=== PATIENT | male | born 1975 | race Caucasian/White ===

== ENCOUNTER 2023-03-03 08:46 | Emergency (ER) | payer SELFPAY ==
[2023-03-03] VITALS (13 sets, daily range): BP systolic 109–156; BP diastolic 72–84; PULSE 55–96; RESP 10–20; TEMP 36.8; O2SAT 18–100; BMI 25.2
[2023-03-03 09:27] LABS: Bacteria Urine None Seen; Culture Indicated Urine Cult Not Indicated; Mucus Urine 2+ (Negative); RBC Urine 0-1/HPF (0-5/HPF); WBC Urine 0-1/HPF (0-5/HPF)
[2023-03-03] MEDS: KETOROLAC 30 MG/ML VIAL 15 MG IV (10:25)
[2023-03-03 10:28] LABS: Alanine Aminotransferase 27 IU/L (<50); Albumin 4.6 g/dL (3.5-5.0); Albumin Globulin Ratio 1.3 (1.0-2.8); Alkaline Phosphatase 59 U/L (38-126); Aspartate Aminotransferase 28 IU/L (17-59); BUN Creatinine Ratio 27.4 (6-22); Bilirubin Total 0.7 mg/dL (0.2-1.3); Blood Urea Nitrogen 20 mg/dL (9-20); Calcium 9.8 mg/dL (8.4-10.2); Carbon Dioxide 30 mmol/L (22-32); Chloride 96 mmol/L (98-107); Estimated Glomerular Filt Rate > 60 mL/min (>60); Globulin 3.6 g/dL (1.7-4.1); Glucose 250 mg/dL (70-100); HEMOLYSIS 17 (0-50); Lipase 13 U/L (23-300); Sodium 134 mmol/L (137-145); Total Protein 8.2 g/dL (6.3-8.2)
--- NOTE | 2023-03-03 10:37 | ED.ABDPAIN ---
HPI - Abdominal Pain General Chief Complaint: Abdominal Pain Stated Complaint: sent by [facility] abd pain Time Seen by Provider: 03/03/23 10:13 Source: patient and family Mode of arrival: Ambulatory History of Present Illness HPI narrative: This is a 47-year-old male with history of alcohol abuse and tobacco who has been sober for 4 months from alcohol and 1 month from tobacco, and burst fracture in the lower lumbar spine. Patient presents with complaint of intermittent abdominal pain over the past several years. He states it is usually periumbilical. Will you typically last 2-3 days at the most and then starts to resolve. He used to think it was related to his drinking so he went decrease his alcohol amount and then it would resolve. States he quit drinking 4 months ago. He started to have an episode over the past 2 days she is continued to increase. He states he is felt a little chilled, no fevers. No nausea or vomiting. He states he is had slightly looser bowel movements but regular and had a regular well formed bowel movement today. No black or bloody stools. He has not any back or flank pain. He states it does not radiate elsewhere. Patient notes that he is had some slowly worsening issues with stopping and starting urinary stream but states that has been going on for awhile. No testicular pain, no discharge, dysuria, urgency or frequency. Patient notes he has some chronic lower back pain but has not had any increase or changes. No new numbness, tingling weakness or radiation. Patient has not had any saddle anesthesia. He took some Advil or Aleve at 7:00 a.m. in the morning. Patient states no prior surgeries. No daily medications. He notes he quit using tobacco month ago, quit alcohol 4 months ago. To sometimes use THC denies any recreational or IV drugs. Related Data Previous Rx's Medication Instructions Recorded meloxicam 7.5 mg tablet 7.5 mg PO BID 5 days #10 tabs 03/03/23 prednisone 10 mg tablets in a dose See Rx Instructions PO .COMPLEX 03/03/23 pack #21 ea Allergies Allergy/AdvReac Type Severity Reaction Status Date / Time INGREDIENT: NDA - NO KNOWN Allergy Unknown Uncoded 01/11/18 12:04 DRUG ALLERGIES Review of Systems Review of Systems ROS Unobtainable: All systems reviewed & are unremarkable except as noted in HPI and below Patient History Social History Smoking Status: Former smoker Smoking Status: Former smoker alcohol intake frequency: other Substance Use Type: marijuana Exam Narrative Exam Narrative: GENERAL: Alert and oriented x three, [id number] distress. HEENT: Head normocephalic, atraumatic, EOMI, pupils reactive, face symmetric, moist mucous membranes NECK: Supple, full range of motion CARDIOVASCULAR: Regular rate and rhythm without murmurs, rubs or gallops. RESPIRATORY: Breath sounds equal bilaterally, no wheezes rales or rhonchi. ABDOMEN: Soft, patient has some periumbilical tenderness. No obvious masses, lumps or hernias are palpated. Patient has a mild diastasis recti but is nontender. Discomfort is a little bit right of the umbilicus. It is not point but sort of generalized to that area. I do not appreciate tenderness throughout the rest of the abdomen. Normoactive bowel sounds all 4 quadrants. No guarding or rebound, rigidity, no mass, no ecchymosis or skin changes. : No CVA tenderness EXTREMITIES: Normal range of motion, no clubbing or edema. Neurovascularly intact NEUROLOGICAL: Cranial nerves II through XII grossly intact. Moving all extremities SKIN: Warm, dry, no petechiae, no rashes or lesions. Initial Vital Signs Initial Vital Signs: Vital Signs Temperature 98.2 F 03/03/23 08:56 Pulse Rate 96 H 03/03/23 08:56 Respiratory Rate 18 03/03/23 08:56 Blood Pressure 122/72 03/03/23 08:56 Pulse Oximetry 18 L 03/03/23 08:56 Oxygen Delivery Method Room Air 03/03/23 08:56 Course Orders Ordered: ED Orders 03/03/23 09:52 Complete Blood Count AUTO DIFF Stat Comprehensive Metabolic Panel Stat Lipase Stat 03/03/23 11:38 CT abdomen pelvis w con Stat Discontinued Medications Ketorolac Tromethamine (Ketorolac 30 Mg/Ml Vial) 15 mg IV NOW ONE Stop: 03/03/23 10:16 Last Admin: 03/03/23 10:25 Dose: 15 mg Documented By: NR Ondansetron HCl (Ondansetron 4 Mg Odt) 4 mg PO NOW PRN PRN Reason: Nausea And Vomiting Ondansetron HCl (Ondansetron 4 Mg/2 Ml Inj) 4 mg IV NOW PRN PRN Reason: Nausea And Vomiting Vital Signs Vital signs: Vital Signs - 8 hr 03/03/23 11:00 03/03/23 11:00 03/03/23 11:30 Pulse Rate 67 Respiratory Rate 10 L Blood Pressure 112/82 113/79 Pulse Oximetry 96 03/03/23 11:30 03/03/23 11:52 03/03/23 11:52 Pulse Rate 62 55 L Respiratory Rate 10 L 10 L Blood Pressure 156/81 H Pulse Oximetry 95 99 03/03/23 12:00 03/03/23 12:00 03/03/23 12:30 Pulse Rate 71 Respiratory Rate 20 Blood Pressure 129/83 127/74 Pulse Oximetry 96 03/03/23 12:30 03/03/23 13:00 03/03/23 13:00 Pulse Rate 63 65 Respiratory Rate 11 L Blood Pressure 123/78 Pulse Oximetry 91 93 MDM - Abdominal Pain Lab Data 03/03/23 09:52 03/03/23 09:52 Labs: Lab Results 03/03/23 03/03/23 03/03/23 Range/Units 09:11 09:52 09:52 WBC 12.6 H (4.5-11.0) X10^3/uL RBC 5.27 (4.5-5.9) X10^6/uL Hgb 15.7 (13.5-17.5) g/dL Hct 46.1 (41-53) % MCV 87.3 (80-100) fL MCH 29.8 (26-34) PG MCHC 34.2 (30-36) % RDW 12.3 (11.6-14.8) % Plt Count 298 (150-400) X10^3/uL Neut % (Auto) 72.1 (50-75) % Lymph % (Auto) 20.8 L (25-40) % [place] % (Auto) 5.6 (3-14) % Eos % (Auto) 1.0 L (2-4) % Baso % (Auto) 0.5 (0-2) % Neut # (Auto) 9100 H (2719-5060) /uL Lymph # (Auto) 2600 (5774-5610) /uL [place] # (Auto) 700 (0-900) /uL Eos # (Auto) 100 (0-450) /uL Baso # (Auto) 100 (0-100) /uL Sodium 134 L (137-145) mmol/L Potassium 5.0 (3.4-5.1) mmol/L Chloride 96 L (98-107) mmol/L Carbon Dioxide 30 (22-32) mmol/L BUN 20 (9-20) mg/dL Creatinine 0.73 (0.66-1.25) mg/dL Estimated GFR > 60 (>60) mL/min BUN/Creatinine Ratio 27.4 H (6-22) Glucose 250 H (70-100) mg/dL Calcium 9.8 (8.4-10.2) mg/dL Total Bilirubin 0.7 (0.2-1.3) mg/dL AST 28 (17-59) IU/L ALT 27 (<50) IU/L Alkaline Phosphatase 59 (38-126) U/L Total Protein 8.2 (6.3-8.2) g/dL Albumin 4.6 (3.5-5.0) g/dL Globulin 3.6 (1.7-4.1) g/dL Albumin/Globulin Ratio 1.3 (1.0-2.8) Lipase 13 L (23-300) U/L Urine RBC 0-1/hpf (0-5/HPF) Urine WBC 0-1/hpf (0-5/HPF) Urine Bacteria None seen (None) Urine Mucus 2+ H (Negative) Ur Culture Indicated? Cult not indicated Point of care testing: Urine Dip Bedside Urine Glucose 100 mg/dl Bedside Urine Bilirubin - Negative Bedside Urine Ketone - Negative Urine Specific [place] 1.030 Bedside Urine Occult Blood +/- Bedside Urine pH 6.0 Bedside Urine Protein - Negative Bedside Urine Urobilinogen - Negative Bedside Urine Nitrite - Negative Bedside Urine Leukocytes - Negative Esterase Imaging Data CT scan - abdomen/pelvis: Radiologist's Impression: [address] [id number] Scan ReportSigned Patient: Nikolai Renner LMR#: [id number]: 1975Acct:[id number]/Sex: 47 / MDate of Service: 03/03/23Loc: EDAccession Number: [id number]? ? Procedure: CT abdomen pelvis w con Ordering Provider: Mank,Coco C D.O. PROCEDURE:? CT ABDOMEN PELVIS W CON ? INDICATIONS:? abd pain, periumbilical intermittent over months, hx etoh ? TECHNIQUE:? After the administration of intravenous contrast, axial sections acquired from the lung bases to the pubic symphysis.? Coronal and sagittal reformats were performed.? For radiation dose reduction, the following was used:? automated exposure control, adjustment of mA and/or kV according to patient size.? ? COMPARISON:? None. ? FINDINGS:? Image quality:? Excellent.? ? Lung bases:? Unremarkable. Heart:? No significant findings. ? ABDOMEN: Liver:? Unremarkable.? ? Gallbladder:? Unremarkable.? ? Biliary ducts:? Unremarkable.? ? Pancreas:? Coarse calcifications present.? No ductal dilation.? Findings consistent with chronic pancreatitis. Spleen:? Unremarkable.? ? Adrenal Glands:? Unremarkable.? ? Kidneys and Ureters:? Unremarkable.? ? ? Stomach and Bowel:? There is fecalization of distal small bowel.? There are a few short segments of moderate bowel wall thickening, measuring up to 8 millimeters, longus segment measuring 3 centimeters (series 2, image 45). Peritoneum:? Small volume free fluid in the pelvis. ? Ventral Wall:? ?No hernias.? Abdominal Nodes:? No retroperitoneal or mesenteric adenopathy by size criteria.? Vessels:? Aorta and inferior vena cava are normal in size.? ? PELVIS: Pelvic Organs:? Unremarkable.? ? Bladder:? Unremarkable.? ? Pelvic Nodes: No enlarged lymph nodes.? Miscellaneous: No hernias are seen.? Bones:? Compression deformity of the L5 vertebral body, without endplate retropulsion..? IMPRESSION:? Fecalization of the distal small bowel, with multiple short segments moderate bowel wall thickening.? Findings are suggestive of Crohn's disease or less likely enteritis.? Recommend outpatient GI referral for further workup. ? Mild chronic pancreatitis.? ? Dictated by: Dax Baldwin M.D. on 03/03/2023 at 12:14? ?? Approved by: Dax Baldwin M.D. on 03/03/2023 at 12:19?? MDM Narrative Medical decision making narrative: This is a 47-year-old male with acute on chronic abdominal pain that is wax and wane over time. He will have long periods with no pain and then will have several days of pain in the which will resolve. Patient states he was drinking regularly until about 4 months ago, he always thought it was related to his alcohol use. Patient states he has been sober for 4 months he describes sort of periumbilical pain but not localized to 1 spot. Patient does not have a lot of other symptoms associated. Labs show a mild leukocytosis, sodium of 134 chloride 96, glucose of 250, otherwise normal LFTs. Imaging shows multiple short segments of moderate bowel wall thickening in the distal small bowel, suggestive of Crohn disease or less likely enteritis, mild chronic pancreatitis. No other acute changes patient has compression deformity L5 vertebral body without implant retropulsion. Discussed with patient has a sibling who had portion of her bowel removed secondary to inflammation. He does not recall if it was diverticulitis or possibly Crohn's. Discussed with patient needs follow-up given referrals for Gastroenterology or General surgery for colonoscopy we did discuss that if he had a Crohn's disease gastroenterology would be more helpful for long-term care. Short course of pain management can try short course steroids we also discussed this does not solve the problem if that is the disease process. Discharge Plan Departure Patient Disposition: Home Clinical Impression: Abdominal pain, Bowel wall thickening Activity Restrictions/Additional Instructions: Your imaging today shows small short segments in your bowel with thickening. With your history of recurrent episodes I would suggest follow-up with either General surgery or preferably gastroenterology for colonoscopy. The changes on your imaging are suggestive of Crohn's disease or a type of autoimmune that can cause abdominal pain. This can only be formally diagnosed with biopsy. You can take Tylenol up to a 1000 mg every 6 hours and/or meloxicam 1 tablet every 12 hours as needed. Meloxicam is in NSAIDs do not take ibuprofen, Aleve or naproxen. You may take steroids once daily until gone. Prescription sent to [facility] in [place] Please return for fevers, rapidly worsening pain, vomiting, black or bloody stools, persistent diarrhea, lightheadedness or passing out or other new or concerning changes. Prescriptions: New meloxicam 7.5 mg tablet 7.5 mg PO BID 5 Days Qty: 10 0RF prednisone 10 mg tablets,dose pack See Rx Instructions .ROUTE .COMPLEX Qty: 21 0RF Rx Instructions: You may take 60 mg p.o. x1 day, then 50 mg p.o. x1 day, then 40 mg p.o. x1 day, then 30 mg p.o. x1 day, then 20 mg p.o. x1 day, then 10 mg p.o. x1 day Referrals: Katty Watson MD [Physician] - Tucker Vital MD [Physician] - Miscellaneous,MD Nohelia [Primary Care Provider] - Stand Alone Forms: Patient Portal/API
[2023-03-03 10:41] LABS: Add Manual Diff / Slide Review NO; Basophils Absolute Auto 100 /uL (0-100); Basophils Percent Auto 0.5 % (0-2); Eosinophils Absolute Auto 100 /uL (0-450); Hematocrit 46.1 % (41-53); Hemoglobin 15.7 g/dL (13.5-17.5); Lymphocytes Absolute Auto 2600 /uL (1100-4500); Lymphocytes Percent Auto 20.8 % (25-40); Mean Corpuscular HGB Conc 34.2 % (30-36); Mean Corpuscular Hemoglobin 29.8 PG (26-34); Mean Corpuscular Volume 87.3 fL (80-100); Monocytes Absolute Auto 700 /uL (0-900); Monocytes Percent Auto 5.6 % (3-14); Neutrophils Absolute Auto 9100 /uL (1500-7000); Neutrophils Percent Auto 72.1 % (50-75); Platelet Count 298 X10^3/uL (150-400); Red Blood Cell Count 5.27 X10^6/uL (4.5-5.9); Red Cell Distribution Width 12.3 % (11.6-14.8); White Blood Cell Count 12.6 X10^3/uL (4.5-11.0)
--- NOTE | 2023-03-03 11:38 | DI.CT.S_ITS ---
PROCEDURE: CT ABDOMEN PELVIS W CON INDICATIONS: abd pain, periumbilical intermittent over months, hx etoh TECHNIQUE: After the administration of intravenous contrast, axial sections acquired from the lung bases to the pubic symphysis. Coronal and sagittal reformats were performed. For radiation dose reduction, the following was used: automated exposure control, adjustment of mA and/or kV according to patient size. COMPARISON: None. FINDINGS: Image quality: Excellent. Lung bases: Unremarkable. Heart: No significant findings. ABDOMEN: Liver: Unremarkable. Gallbladder: Unremarkable. Biliary ducts: Unremarkable. Pancreas: Coarse calcifications present. No ductal dilation. Findings consistent with chronic pancreatitis. Spleen: Unremarkable. Adrenal Glands: Unremarkable. Kidneys and Ureters: Unremarkable. Stomach and Bowel: There is fecalization of distal small bowel. There are a few short segments of moderate bowel wall thickening, measuring up to 8 millimeters, longus segment measuring 3 centimeters (series 2, image 45). Peritoneum: Small volume free fluid in the pelvis. Ventral Wall: No hernias. Abdominal Nodes: No retroperitoneal or mesenteric adenopathy by size criteria. Vessels: Aorta and inferior vena cava are normal in size. PELVIS: Pelvic Organs: Unremarkable. Bladder: Unremarkable. Pelvic Nodes: No enlarged lymph nodes. Miscellaneous: No hernias are seen. Bones: Compression deformity of the L5 vertebral body, without endplate retropulsion.. IMPRESSION: Fecalization of the distal small bowel, with multiple short segments moderate bowel wall thickening. Findings are suggestive of Crohn's disease or less likely enteritis. Recommend outpatient GI referral for further workup. Mild chronic pancreatitis. Dictated by: Dax Baldwin M.D. on 03/03/2023 at 12:14 Approved by: aDx Baldwin M.D. on 03/03/2023 at 12:19
== END 2023-03-03 13:04 | disposition home or self-care (01) ==
PROVIDERS: Emergency Provider Emergency Medicine; Family Provider Nurse Practitioner Family
DX: R10.9 Unspecified abdominal pain (principal); K63.9 Disease of intestine, unspecified
CPT/HCPCS: 36415; 74177; 80053; 81003; 81015; 83690; 85025; 96374; 99284; J1885; Q9967

== ENCOUNTER → 2023-06-15 15:36 | Outpatient (CLI) | payer OTHER, SELFPAY ==
[2023-06-15 16:37] LABS: Hemoglobin A1C% w Est Avg Glu 9.9 % (4.0-6.0)
[2023-06-15 16:52] LABS: Alanine Aminotransferase 27 IU/L (<50); Albumin 4.4 g/dL (3.5-5.0); Albumin Globulin Ratio 1.5 (1.0-2.8); Alkaline Phosphatase 48 U/L (38-126); Amylase 44 U/L (30-110); Aspartate Aminotransferase 26 IU/L (17-59); BUN Creatinine Ratio 23.2 (6-22); Bilirubin Total 0.4 mg/dL (0.2-1.3); Blood Urea Nitrogen 16 mg/dL (9-20); C-Reactive Protein Quant < 0.5 mg/dL (<1.0); Carbon Dioxide 30 mmol/L (22-32); Chloride 96 mmol/L (98-107); Cholesterol 216 mg/dL (140-199); Estimated Glomerular Filt Rate > 60 mL/min (>60); Glucose 116 mg/dL (70-100); HDL Cholesterol 73 mg/dL (40-60); HEMOLYSIS < 15 (0-50); LDL Cholesterol Calculated 94 mg/dL (<100); Lipase 19 U/L (23-300); Potassium 3.6 mmol/L (3.4-5.1); Sodium 134 mmol/L (137-145); Total Protein 7.4 g/dL (6.3-8.2); Triglycerides 244 mg/dL (35-150)
[2023-06-15 17:57] LABS: Creatinine Urine Random 34.5 mg/dL
[2023-06-15 18:10] LABS: Microalbumin Urine Random < 0.6 mg/dL (0-1.6)
[2023-06-15 19:15] LABS: Erythrocyte Sedimentation Rate 6 MM/HR (0-15)
[2023-06-16 16:39] LABS: Hep C Virus Ab w/Reflex Quant NEGATIVE s/c (NEGATIVE)
[2023-06-18 10:25] LABS: PSA, Total 0.3 ng/mL (0.0-4.0)
[2023-06-22 14:36] LABS: HLA B27 Negative (.)
== END ==
PROVIDERS: Family Provider Nurse Practitioner Family; Referring Provider Nurse Practitioner Family; Visit Provider Nurse Practitioner Family
DX: Z11.59 Encounter for screening for other viral diseases (principal); Z13.220 Encounter for screening for lipoid disorders; E11.65 Type 2 diabetes mellitus with hyperglycemia; R39.12 Poor urinary stream; M54.50 Low back pain, unspecified; K86.1 Other chronic pancreatitis
CPT/HCPCS: 36415; 80053; 80061; 81374; 82043; 82150; 82570; 83036; 83690; 84153; 84154; 85651; 86140; 86803

== ENCOUNTER → 2025-05-15 08:28 | Outpatient (CLI) | payer OTHER, SELFPAY ==
[2025-05-15 09:14] LABS: Add Manual Diff / Slide Review NO; Hematocrit 42.8 % (41-53); Hemoglobin 14.6 g/dL (13.5-17.5); Lymphocytes Absolute Auto 2700 /uL (1100-4500); Mean Corpuscular HGB Conc 34.0 % (30-36); Mean Corpuscular Hemoglobin 29.6 PG (26-34); Mean Corpuscular Volume 87.1 fL (80-100); Platelet Count 265 X10^3/uL (150-400)
[2025-05-15 09:36] LABS: Alanine Aminotransferase 18 IU/L (<50); Albumin 4.2 g/dL (3.5-5.0); Albumin Globulin Ratio 1.6 (1.0-2.8); Alkaline Phosphatase 53 U/L (38-126); Blood Urea Nitrogen 15 mg/dL (9-20); Calcium 9.4 mg/dL (8.4-10.2); Carbon Dioxide 29 mmol/L (22-32); Chloride 95 mmol/L (98-107); Cholesterol 242 mg/dL (140-199); Estimated Glomerular Filt Rate > 60 mL/min (>60); Globulin 2.6 g/dL (1.7-4.1); Glucose 321 mg/dL (70-99); HDL Cholesterol 100 mg/dL (40-60); HEMOLYSIS < 15 (0-50); Lipase 17 U/L (23-300); Potassium 4.8 mmol/L (3.4-5.1); Sodium 132 mmol/L (137-145); Total Protein 6.8 g/dL (6.3-8.2); Triglycerides 94 mg/dL (35-150)
[2025-05-15 10:17] LABS: HIV 1 & 2 Ab/Ag 4th Gen Combo NEGATIVE (NEGATIVE)
[2025-05-15 12:13] LABS: Urine N gonorrhoeae NOT DETECTED
[2025-05-15 12:14] LABS: Urine Chlamydia NOT DETECTED
[2025-05-15 16:48] LABS: Hemoglobin A1C% w Est Avg Glu > 14.0 % (4.0-6.0)
== END ==
PROVIDERS: Family Provider Nurse Practitioner Family; PCP Family Medicine; Referring Provider Family Medicine; Visit Provider Family Medicine
DX: R21 Rash and other nonspecific skin eruption (principal); Z11.3 Encounter for screening for infections with a predominantly sexual mode of transmission; Z76.89 Persons encountering health services in other specified circumstances; Z68.21 Body mass index [BMI] 21.0-21.9, adult; R10.9 Unspecified abdominal pain; R63.4 Abnormal weight loss; Z87.898 Personal history of other specified conditions; Z72.89 Other problems related to lifestyle; F19.91 Other psychoactive substance use, unspecified, in remission; Z13.220 Encounter for screening for lipoid disorders; Z13.1 Encounter for screening for diabetes mellitus; R73.9 Hyperglycemia, unspecified
CPT/HCPCS: 36415; 80053; 80061; 83036; 83690; 85025; 86780; 87389; 87491; 87522; 87591

== ENCOUNTER → 2025-06-14 15:47 | Outpatient (CLI) | payer OTHER, SELFPAY ==
--- NOTE | 2025-06-14 16:16 | DIAB.MNT ---
Initial Diabetes Medical Nutrition Therapy Assessment Name: Nikolai Renner Date: 06/14/25 Time: 4-5p Dx: Type II Diabetes Provider: Dann Farhan presents for initial Dm visit. Recently dx with T2DM with hgA1c >14%. 2022 had a hgA1c 9.9% without dm management at that time seemingly. Endorses 70# wt loss with hyperglycemia, which prompted him to go to PCP. Since insulin therapy, has been able to gain 10#. Recently started insulin therapy. Up to 14u Glargine HS with success, FBG <130mg/dl x 4 days, however still experiencing elevated BG most days, with frequent numbers >200mg/dl with even moderate CHO intake. Endorses ww bread sandwicha and two strawberries and BG went up to 320mg/dl. Endorses FH of T2Dm with father, who was dx at a similar age and in his 50s. Quit smoking. Quit ETOH x 3 years. States at that time he may have replaced ETOH with sugar. Has recently d/c ice cream, candy bars, and sugar beverages. 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 Most meals low to moderate in CHO, though sometimes high CHO at dinner. Diet Recall: 5a: low CHO yogurt (0-10g CHO) sn: peanuts, jerky or sandwich on ww (0-30g CHO) 12p: sandwich ww with meat/cheese or eggs (30g CHO) 6-7p: stuffed peppers x 1 with meat and rice (30-45g CHO) OR yakisoba 2-3c noodles (90-135g CHO) sn: couple strawberries water 1-3L 1-2c coffee with almond milk occasional prebiotic beverage endorses numbness in hands and feet Anthropometrics: Ht: 6' Wt: 167# 05/2025 Weight history: Reports previous UBW of 230#. With hyperglycemia wt down to 157#, now up by 10#. Physical Activity: No program. Gardens. Active with work. Wants to start resistance training. Self-Monitoring Blood Glucose: Wore CGM with TIR excessively elevated. More recent BG shows improved FBG but often elevated later in the day. Not currently checking consistently 1-2 hour pc. Sometimes 1-2 hours after eating, other times random. TIR: 43% very high 39% high 18% in range 0% low or very low avmg/dl GMI: 9.1% std dev: 64mg/dl variance: 26.4% Date Pre Post Pre Post other random readings: 06/08 145 311 122 9/ 183 181 178 214 06/10 138 148 216 142 06/11 95 152 156 126 06/12 97 92 309 229 06/13 116 198 158 208 06/14 108 320 1-2hr pc 259 215 Diabetes Medications: 14u Glargine Pertinent Labs: HgA1c: >14% 05/2025 Past Medical History: (Last Updated 05/27/25 @ 18:11 by Debbie Rodriguez) Ankle pain (~2019) Diabetes Fracture (~2019) Lumbar History of alcohol use Quit December 2022 History of drug use Hypercholesterolemia Hyponatremia Vision changes Nutrition Rx: Plate Method Nutrition Diagnosis: - Nutrition and food related knowledge deficit r/t newly dx T2DM aeb pt report and hgA1c of >14% Intervention: This participant was very receptive. Provided appropriate educational handouts. Discussed the following topics: Completed intake assessment. Discussed barriers to care. HgA1c, its correlation to blood glucose numbers, and rationale for goal Importance of self-monitoring, how often, and when to check. Suggested checking at different times to evaluate meals Plate Method, impact of macronutrients on blood sugar, meal timing, pairing macronutrients and spreading out carbohydrates for better blood glucose management Recommended servings for carbohydrates at meals and snacks Heart health nutrition Brainstormed appropriate meal/snack ideas based on food preferences Role of physical activity and rec for hyperglycemia Hydration with elevated BG Potential for additional DM medication, RD messaged PCP regarding plan Created SMART goals for patient self-care and success. Goals: Keep CHO to 1c or less at meals Eat more veggies Check pc readings at 1-2 hours and record Follow-up: [facility] follow-up in 2-3 weeks Malka Card RDN, CLAUDE Certified Diabetes Care and Regional Safety Manager P: [phone] Thank you for this referral
== END ==
PROVIDERS: PCP Family Medicine; Referring Provider Family Medicine
DX: E11.65 Type 2 diabetes mellitus with hyperglycemia (principal); R63.4 Abnormal weight loss; Z79.4 Long term (current) use of insulin; Z71.3 Dietary counseling and surveillance
CPT/HCPCS: 97802

== ENCOUNTER → 2025-07-02 12:35 | Outpatient (CLI) | payer OTHER, SELFPAY ==
--- NOTE | 2025-07-02 13:06 | DIAB.MNTFU ---
Follow-up Diabetes Medical Nutrition Therapy Assessment Name: Nikolai Renner Date: 07/02/25 Time: 105-2p Dx: Type II Diabetes Farhan presents for Dm visit. Recently dx with T2DM with hgA1c >14%. 2022 had a hgA1c 9.9% without dm management at that time seemingly. Endorses 70# wt loss with hyperglycemia, which prompted him to go to PCP. Since insulin therapy, has been able to gain 10#. Stopped at 14u glargine since FBG were previously in goal. More recently FBG have been more elevated. Reports this may be from Trying to eat more veggies. Following plate method for meals, though reports often 1.5c carbs at meals. States this is hard at times to limit CHO. Easy to eat protein, but reducing CHO is challenging. Throwing out produce more since kids are all moved out. Endorses sweet cravings. Overall, better energy with reduced BG. Does not have rx for needle tips for insulin pens. Has rx for Dexcom, however no communication with pharmacy yet. Today we called pharmacy. Ran rx and insurance req prior authorization. RD messaged PCP workgroup regarding prior auth and the need for an rx for needle tips. May need higher than 14u insulin if FBG continue to trends on the higher side. For additional meds, PCP expressed plan of adding oral Dm meds, which this RD agrees with. Pt reports his is worried about Metformin. Needs more education on this per report. Recently started insulin therapy. Up to 14u Glargine HS with success, FBG <130mg/dl x 4 days, however still experiencing elevated BG most days, with frequent numbers >200mg/dl with even moderate CHO intake. Endorses ww bread sandwicha and two strawberries and BG went up to 320mg/dl. 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 With hyperglycemia wt down to 157#, now up by 10#. Physical Activity: No program. Gardens. Active with work. Wants to start resistance training. Self-Monitoring Blood Glucose: checking with finger sticks. FBG increased recently and BG later in the day often elevated. Less BG >250 since last visit. Trying another CGm sample. Today Date Pre Post Pre Post Pre Post Pre 06/26 142 95 281 06/27 211 276 265 06/28 216 232 287 06/29 145 234 204 06/30 108 201 07/01 264 216 117 07/02 223 186 131 Last Visit Date Pre Post Pre Post other random readings: 06/08 145 311 122 06/09 183 181 178 214 06/10 138 148 216 142 06/11 95 152 156 126 06/12 97 92 309 229 06/13 116 198 158 208 06/14 108 3201-2hr pc 259 215 Last TIR: 43% very high 39% high 18% in range 0% low or very low avmg/dl GMI: 9.1% std dev: 64mg/dl variance: 26.4% Diabetes Medications: 14u Glargine Pertinent Labs: HgA1c: >14% 05/2025 Past Medical History: (Last Updated 05/27/25 @ 18:11 by Debbie Rodriguez) Ankle pain (~2019) Diabetes Fracture (~2019) Lumbar History of alcohol use Quit December 2022 History of drug use Hypercholesterolemia Hyponatremia Vision changes Nutrition Rx: Plate Method Nutrition Diagnosis: - Nutrition and food related knowledge deficit r/t newly dx T2DM aeb pt report and hgA1c of >14% Intervention: This participant was very receptive. Provided appropriate educational handouts. Discussed the following topics: Potential for additional DM medication and PCP plan for orals Safety of Metformin Meal/snack timing and CHO portions Troubleshooting access to CGM Created SMART goals for patient self-care and success. Goals: Keep CHO to 1c or less at meals - in progress Eat more veggies- met Check pc readings at 1-2 hours and record- met Add afternoon snack- new Try to eat q 3-5 hours- new Follow-up: [facility] follow-up in 2-3 weeks in person. Remote check-in x 1 week. If FBG continue to be elevated, would rec increase in basal insulin. Malka Card RDN, CLAUDE Certified Diabetes Care and Counselor At Law P: [phone] Thank you for this referral
== END ==
PROVIDERS: PCP Family Medicine; Referring Provider Family Medicine
DX: E11.65 Type 2 diabetes mellitus with hyperglycemia (principal); Z71.3 Dietary counseling and surveillance; Z79.4 Long term (current) use of insulin
CPT/HCPCS: 97803

== ENCOUNTER → 2025-07-23 15:38 | Outpatient (CLI) | payer OTHER, SELFPAY ==
--- NOTE | 2025-08-28 10:53 | DIAB.FU ---
Follow-up Diabetes Education Assessment Name: Nikolai Renner Date: 07/23/25 Time: [id number] Dx: Type II Diabetes Farhan presents for Dm visit. Recently dx with T2DM with hgA1c >14%. 2022 had a hgA1c 9.9% without dm management at that time seemingly. Endorses 70# wt loss with hyperglycemia, which prompted him to go to PCP. Since insulin therapy, has been able to gain 10#. continues on 14u glargine. got a CGM rx and wearing sensor regularly. Very active at work and BG was much improved while working. When not working, noticing elevated BG. Plans to make an exercise space at home. Reduced sugar cravings per report. On a break from work now with fishing schedule. Need eye appt. Overall, with improved BG endorses clearer mind and more energy. 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 Anthropometrics: Ht: 6' Wt: 165-167# 07/2025 reported 167# 05/2025 Weight history: Reports previous UBW of 230#. With hyperglycemia wt down to 157#, now up by 10#. Physical Activity: Bought resistance bands. likes to walk. Possible treadmill. Self-Monitoring Blood Glucose: Improved time in range TIR: 7% very high 28% high 65% in range 0% low or very low avmg/dl GMI: 7.3% std dev: 50mg/dl variance: 29.6% Last TIR: 43% very high 39% high 18% in range 0% low or very low avmg/dl GMI: 9.1% std dev: 64mg/dl variance: 26.4% Diabetes Medications: 14u Glargine Pertinent Labs: HgA1c: >14% 05/2025 Past Medical History: (Last Updated 05/27/25 @ 18:11 by Debbie Rodriguez) Ankle pain (~2019) Diabetes Fracture (~2019) Lumbar History of alcohol use Quit December 2022 History of drug use Hypercholesterolemia Hyponatremia Vision changes Intervention: This participant was very receptive. Provided appropriate educational handouts. Discussed the following topics: Medication management: orals v injectable Dm meds Nutrition recs Physical activity plan and goals Ways to reduce Dm complication risks CGM trends and goals and improvements Created SMART goals for patient self-care and success. Goals: Add afternoon snack- met Try to eat q 3-5 hours- met Try resistance bands 3 days per week- new Follow-up: [facility] follow-up in 3-4 weeks Malka Card RDN, CLA[facility] Certified Diabetes Care and [employer] P: [phone] Thank you for this referral
== END ==
LOC: DIET 15:38
PROVIDERS: PCP Family Medicine; Referring Provider Family Medicine
DX: E11.65 Type 2 diabetes mellitus with hyperglycemia (principal); Z71.3 Dietary counseling and surveillance; Z79.4 Long term (current) use of insulin
CPT/HCPCS: G0108

== ENCOUNTER → 2025-08-20 15:14 | Outpatient (CLI) | payer OTHER, SELFPAY ==
--- NOTE | 2025-09-19 10:24 | DIAB.FU ---
Follow-up Diabetes Education Assessment Name: Nikolai Renner Date: 08/20/25 Time: [id number] Dx: Type II Diabetes Farhan presents for Dm visit. Recently dx with T2DM with hgA1c >14%. 2022 had a hgA1c 9.9% without dm management at that time seemingly. Endorses 70# wt loss with hyperglycemia, which prompted him to go to PCP. Since insulin therapy, has been able to gain 10#. Increased glargine to 16u. Endorses stress lately with the passing of some of his close friends. Meditates q day. Endorses some issues with CGM sensors and false lows, possibly false elevations. Due for labs. sees PCP this month. Trying to eat q 4 hours. Added afternoon snack. 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 Anthropometrics: Ht: 6' Wt: 165-167# 07/2025 reported 167# 05/2025 Weight history: Reports previous UBW of 230#. With hyperglycemia wt down to 157#, now up by 10#. Physical Activity: Bought resistance bands. likes to walk. Possible treadmill. Self-Monitoring Blood Glucose: Increased BG, which may be related to being home on break and change in diet, or issues with CGM sensor, or stress. Most elevations after eating. TIR: 14% very high 41% high 43% in range 0% low or very low avmg/dl GMI: 7.7% std dev: 63mg/dl variance: 33.7% Last TIR: 7% very high 28% high 65% in range 0% low or very low avmg/dl GMI: 7.3% std dev: 50mg/dl variance: 29.6% Diabetes Medications: 16u Glargine Pertinent Labs: HgA1c: >14% 05/2025 Past Medical History: (Last Updated 05/27/25 @ 18:11 by Debbie Rodriguez) Ankle pain (~2019) Diabetes Fracture (~2019) Lumbar History of alcohol use Quit December 2022 History of drug use Hypercholesterolemia Hyponatremia Vision changes Intervention: This participant was very receptive. Provided appropriate educational handouts. Discussed the following topics: Medication management Replacement program with Dexcom for sensors Stress and BG and managing stress Created SMART goals for patient self-care and success. Goals: Try resistance bands 3 days per week- in progress Get new labs- new Follow-up: [facility] follow-up in 3-4 weeks Malka Card RDN, CLA[place] Certified Diabetes Care and [employer] P: [phone] Thank you for this referral
== END ==
LOC: DIET 15:17
PROVIDERS: PCP Family Medicine; Referring Provider Family Medicine
DX: E11.65 Type 2 diabetes mellitus with hyperglycemia (principal); Z71.3 Dietary counseling and surveillance; Z79.4 Long term (current) use of insulin
CPT/HCPCS: G0108

== ENCOUNTER → 2025-08-21 12:37 | Outpatient (CLI) | payer OTHER, SELFPAY ==
[2025-08-21 13:10] LABS: Hemoglobin A1C% w Est Avg Glu 8.7 % (4.0-6.0)
== END ==
PROVIDERS: PCP Family Medicine; Referring Provider Family Medicine; Visit Provider Family Medicine
DX: E13.9 Other specified diabetes mellitus without complications (principal)
CPT/HCPCS: 36415; 83036